=== PATIENT | female | born 1960 | race Caucasian/White ===

== ENCOUNTER → 2016-08-06 | Outpatient (CLI) | payer OTHER ==
[~2016-08-06] MED LIST: GABA300C10 PO
[2016-08-06 10:50] LABS: BLOOD UREA NITROGEN 17 mg/dL (7-18)
[2016-08-06 10:53] LABS: ASPARTATE AMINO TRANSFERASE 8 U/L (15-37)
== END | disposition home or self-care (01) ==
LOC: STAR 09:15
PROVIDERS: ATTEND Surgery
DX: Z01.818 Encounter for other preprocedural examination (principal)
CPT/HCPCS: 36415; 71020; 80053; 85025; 93005

== ENCOUNTER 2016-08-11 11:00 | Observation (INO) | payer OTHER ==
[~2016-08-11] VITALS: Ht 167.6 cm; Wt 76.0 kg
[2016-08-11] MEDS ORDERED: LACTATED RINGERS 1,000 ML IV SCH (11:18)
[2016-08-11] MEDS ORDERED: ACETAMINOPHEN 500 MG TABLET PO STA (12:12)
[2016-08-11] MEDS ORDERED: GABAPENTIN 300 MG CAPSULE PO STA (12:12)
[2016-08-11] MEDS ORDERED: FENTANYL PF 250 MCG/5ML ONE (14:15)
[2016-08-11] MEDS ORDERED: MIDAZOLAM 1 MG/ML, 2ML ONE (14:16)
[2016-08-11] MEDS ORDERED: BUPIVACAINE/PF-EPI 0.5% 1:200K ONE (15:42)
[2016-08-11] MEDS ORDERED: CEFAZOLIN 1,000 MG ONE (15:53)
[2016-08-11] MEDS ORDERED: PHENYLEPHRINE 10 MG/ML ONE (15:53)
[2016-08-11] MEDS ORDERED: DEXAMETHASONE 4 MG/ML, 1ML ONE (15:53)
[2016-08-11] MEDS ORDERED: SUCCINYLCHOLINE 20 MG/ML, 10ML ONE (15:53)
[2016-08-11] MEDS ORDERED: NEOSTIGMINE 1 MG/ML, 10ML ONE (15:53)
[2016-08-11] MEDS ORDERED: EPHEDRINE 50 MG/ML, 1ML ONE (15:53)
[2016-08-11] MEDS ORDERED: GLYCOPYRROLATE 0.2MG/1ML ONE (15:53)
[2016-08-11] MEDS ORDERED: ONDANSETRON 2MG/ML, 2ML ONE (15:53)
[2016-08-11] MEDS ORDERED: PROPOFOL 10 MG/ML, 20ML ONE (15:53)
[2016-08-11] MEDS ORDERED: ROCURONIUM 10 MG/ML ONE (15:53)
[2016-08-11] MEDS ORDERED: PROMETHAZINE 25 MG/ML, 1ML IV PRN (16:00)
[2016-08-11] MEDS ORDERED: hydrALAzine 20 MG/ML, 1ML IV PRN (16:00)
[2016-08-11] MEDS ORDERED: LABETALOL 5MG/ML, 20ML IV PRN (16:00)
[2016-08-11] MEDS ORDERED: MEPERIDINE/PF 25MG/0.5ML IVPush PRN (16:00)
[2016-08-11] MEDS ORDERED: OXYcodone 5 MG/5 ML ORAL.SOL UDC PO PRN (16:00)
[2016-08-11] MEDS ORDERED: ONDANSETRON 2MG/ML, 2ML IVPush PRN ×2 (16:00→19:30)
[2016-08-11] MEDS ORDERED: METOCLOPRAMIDE 5 MG/ML, 2ML IV PRN (16:00)
[2016-08-11] MEDS ORDERED: FENTANYL PF 100 MCG/2ML IV PRN (16:00)
[2016-08-11] MEDS ORDERED: FENTANYL PF 100 MCG/2ML ONE (17:21)
[2016-08-11] MEDS ORDERED: MEPERIDINE/PF 25MG/0.5ML ONE (18:52)
[2016-08-11] MEDS ORDERED: OXYcodone 5 MG/5 ML ORAL.SOL UDC ONE (18:52)
[2016-08-11 18:54] LABS: IOPTH BASELINE 231 pg/mL; SAMPLE 5 %DROP IOPTH 87 %; SAMPLE 6 %DROP IOPTH 90 %
[2016-08-11] MEDS: POTASSIUM CHLORIDE 20 MEQ in D5%-0.45% NACL 1,000 ML IV SCH (19:01)
[2016-08-11] MEDS ORDERED: HYDROmorphone 2 MG/ML, 1ML ONE (19:05)
[2016-08-11] MEDS: HYDROmorphone 1 MG/ML, 1ML IV PRN ×4 (19:06→19:40)
[2016-08-11] MEDS ORDERED: DIPHENHYDRAMINE 25 MG CAPSULE PO PRN (19:30)
[2016-08-11] MEDS: OXYcodone/APAP 5/325MG TABLET PO PRN (23:08)
[2016-08-12 00:19] VITALS: BP 116/70
[2016-08-12] MEDS: DIPHENHYDRAMINE 50 MG/ML, 1ML IV PRN ×2 (00:30→02:54)
[2016-08-12] MEDS: GABAPENTIN 300 MG CAPSULE PO SCH ×2 (00:30→08:09)
[2016-08-12] MEDS: OXYcodone/APAP 5/325MG TABLET PO PRN ×3 (02:53→11:28)
[2016-08-12 03:00] VITALS: BP 135/73
[2016-08-12] MEDS: POTASSIUM CHLORIDE 20 MEQ in D5%-0.45% NACL 1,000 ML IV SCH ×2 (03:06→08:10)
[2016-08-12 07:08] VITALS: BP 133/80
[2016-08-12] MEDS ORDERED: CALCIUM CARBONATE 500 MG TAB.CHEW PO SCH (13:00)
[2016-08-12 13:31] VITALS: BP 130/68
[2016-08-12] MEDS ORDERED: OXYC-302 PO (14:10)
== END 2016-08-12 14:20 | disposition home or self-care (01) ==
LOC: OUT 11:00 → ORIP 19:01 → 4NOR 20:35 → DCLOUNGE 08-12 13:39
PROVIDERS: ADMIT Surgery; ATTEND Surgery
DX: E21.0 Primary hyperparathyroidism (principal); R22.1 Localized swelling, mass and lump, neck; K43.9 Ventral hernia without obstruction or gangrene
CPT/HCPCS: 36415; 49570; 60220; 60500; 82040; 82310; 83970; 88304; 88307; 88331; 95865; 95940; 96374; 96376; C1729; C1760; C1781; G0378; J0330; J0690; J1100; J1170; J1200; J2175; J2250; J2370; J2405; J2704; J2710; J3010; J7120; J3490